=== PATIENT | female | born 1960 | race Caucasian/White ===

== ENCOUNTER 2023-03-29 13:08 | Day surgery (SDC) | payer BC ==
[~2023-03-29] VITALS: Ht 170.2 cm; Wt 113.0 kg
[~2023-03-29 13:08] MED LIST: Bisoprolol Fumar5 MG PO; DULO60 PO; HYDCHL25 PO; LOSARTAN POTAS100 M1 PO; Oxybutynin Chlo10 MG PO; POTCHL20ER PO
[2023-03-29] MEDS ORDERED: CENTRUM SILVER1 EAC2 PO (13:27)
[2023-03-29 15:13] VITALS: BP 136/87
--- NOTE | 2023-03-29 15:13 | NUR ---
03/29/23 1513 [place] REM[place]. SITE WNL
== END 2023-03-29 15:18 | disposition home or self-care (01) ==
LOC: ORSCSDS 13:08
PROVIDERS: Internal Medicine Gastroenterology
PROC: 0DJD8ZZ Inspection of Lower Intestinal Tract, Via Natural or Artificial Opening Endoscopic (ICD-10-PCS; principal; 2023-03-29 14:00)
DX: Z12.11 Encounter for screening for malignant neoplasm of colon (principal); Z86.010 Personal history of colon polyps; K64.8 Other hemorrhoids; I10 Essential (primary) hypertension; G47.33 Obstructive sleep apnea (adult) (pediatric); E11.9 Type 2 diabetes mellitus without complications; Z79.899 Other long term (current) drug therapy
CPT/HCPCS: 82947; J2704; J7120

== ENCOUNTER 2024-06-04 12:16 | Day surgery (SDC) | payer BC ==
[~2024-06-04] VITALS: Ht 170.2 cm; Wt 119.2 kg
[~2024-06-04 12:16] MED LIST changes: +Balanced Salt Epinephrine Irrigation Solution 500 mL IR SCH; +CENTRUM SILVER1 EAC2 PO; +Lidocaine HCl/Pf 1% 5 ML VIAL XX SCH; +Moxifloxacin HCL 0.5 MG/0.1 ML 0.4MLSYR LEFTEYE SCH; +NS 500 ML IV ONE; +PHENYLEPHRINE\\TROPICAMIDE\\TETRACAINE OPHTHALMIC DILATING SOLN LEFTEYE PRN; +Povidone-Iodine 450 DROP/30 ML Solution LEFTEYE SCH; +Povidone-Iodine 450 DROP/30 ML Solution ONE; +Tetracaine HCl/Pf 0.5% Opth Soln 4 ml ONE
[2024-06-04] MEDS ORDERED: NS 500 ML IV ONE (13:03)
--- NOTE | 2024-06-04 13:05 | NUR ---
06/04/24 1305 Dasha Valiente CALL LIGHT WITHIN REACH. TETRACAINE IN LEFT EYE AT 1259 AND PLEDGETT IN AT 1300
[2024-06-04 14:15] VITALS: BP 152/79
== END 2024-06-04 14:25 | disposition home or self-care (01) ==
LOC: ORSCSDS 12:16
PROVIDERS: Student in an Organized Health Care Education/Training Program
PROC: 08RK3JZ Replacement of Left Lens with Synthetic Substitute, Percutaneous Approach (ICD-10-PCS; principal; 2024-06-04 13:45)
DX: E11.36 Type 2 diabetes mellitus with diabetic cataract (principal); H25.813 Combined forms of age-related cataract, bilateral; I10 Essential (primary) hypertension; Z79.899 Other long term (current) drug therapy
CPT/HCPCS: 82947; J7040; V2632

== ENCOUNTER 2024-06-11 12:28 | Day surgery (SDC) | payer BC ==
[~2024-06-11] VITALS: Ht 170.2 cm; Wt 120.8 kg
[~2024-06-11 12:28] MED LIST changes: +FentaNYL Citrate 50 MCG/ML 2 ML Injection ONE; +Midazolam HCl 1MG / ML 2ML Vial ONE; -Moxifloxacin HCL 0.5 MG/0.1 ML 0.4MLSYR LEFTEYE SCH; +Moxifloxacin HCL 0.5 MG/0.1 ML 0.4MLSYR RIGHTEYE SCH; -PHENYLEPHRINE\\TROPICAMIDE\\TETRACAINE OPHTHALMIC DILATING SOLN LEFTEYE PRN; +PHENYLEPHRINE\\TROPICAMIDE\\TETRACAINE OPHTHALMIC DILATING SOLN RIGHTEYE PRN; -Povidone-Iodine 450 DROP/30 ML Solution LEFTEYE SCH; +Povidone-Iodine 450 DROP/30 ML Solution RIGHTEYE SCH
--- NOTE | 2024-06-11 12:46 | NUR ---
06/11/24 1246 Dasha Valiente CALL LIGHT WITHIN REACH. TETRACAINE IN RIGHT EYE AT 1241 AND PLEDGETT IN AT 1242
[2024-06-11] MEDS ORDERED: NS 500 ML IV ONE ×2 (12:47→13:20)
[2024-06-11 13:56] VITALS: BP 146/81
== END 2024-06-11 13:39 | disposition home or self-care (01) ==
LOC: ORSCSDS 12:28
PROVIDERS: Student in an Organized Health Care Education/Training Program
PROC: 08RJ3JZ Replacement of Right Lens with Synthetic Substitute, Percutaneous Approach (ICD-10-PCS; principal; 2024-06-11 13:45)
DX: E11.36 Type 2 diabetes mellitus with diabetic cataract (principal); H25.811 Combined forms of age-related cataract, right eye; Z96.1 Presence of intraocular lens; I10 Essential (primary) hypertension; E66.9 Obesity, unspecified; Z68.41 Body mass index [BMI] 40.0-44.9, adult; Z79.899 Other long term (current) drug therapy
CPT/HCPCS: 82947; J2250; J3010; J7040; V2632

== ENCOUNTER → 2024-12-16 | Outpatient (CLI) | payer MEDICARE ==
[~2024-12-16] MED LIST changes: -Balanced Salt Epinephrine Irrigation Solution 500 mL IR SCH; -FentaNYL Citrate 50 MCG/ML 2 ML Injection ONE; -Lidocaine HCl/Pf 1% 5 ML VIAL XX SCH; -Midazolam HCl 1MG / ML 2ML Vial ONE; -Moxifloxacin HCL 0.5 MG/0.1 ML 0.4MLSYR RIGHTEYE SCH; -NS 500 ML IV ONE; -PHENYLEPHRINE\\TROPICAMIDE\\TETRACAINE OPHTHALMIC DILATING SOLN RIGHTEYE PRN; -Povidone-Iodine 450 DROP/30 ML Solution ONE; -Povidone-Iodine 450 DROP/30 ML Solution RIGHTEYE SCH; -Tetracaine HCl/Pf 0.5% Opth Soln 4 ml ONE
== END ==
LOC: LAB SHORT 10:10 → LAB 10:10
DX: N39.0 Urinary tract infection, site not specified (principal)
CPT/HCPCS: 87077; 87086; 87186

== ENCOUNTER 2024-12-30 12:15 | Emergency (ER) | payer MEDICARE ==
[~2024-12-30] VITALS: Ht 180.3 cm; Wt 90.7 kg
[2024-12-30 13:34] LABS: BASOPHILS ABSOLUTE AUTO 0.06 K/mm3 (0.00-0.23); BASOPHILS PERCENT AUTO 1 % (0-2); EOSINOPHILS ABSOLUTE AUTO 0.26 K/mm3 (0.00-0.68); EOSINOPHILS PERCENT AUTO 3 % (0-6); Hemoglobin 9.2 g/dL (11.5-16.0); IMMATURE GRAN ABSOLUTE AUTO 0.03 K/mm3 (0.00-0.10); IMMATURE GRAN PERCENT AUTO 0 % (0-1); LYMPHOCYTES ABSOLUTE AUTO 1.77 K/mm3 (0.84-5.20); LYMPHOCYTES PERCENT AUTO 19 % (21-46); MONOCYTES ABSOLUTE AUTO 0.75 K/mm3 (0.16-1.47); MONOCYTES PERCENT AUTO 8 % (4-13); Mean Corpuscular HGB 22.9 pg (26.0-34.0); Mean Corpuscular HGB Conc 30.7 g/dL (31.5-36.5); Mean Corpuscular Volume 75 fL (80-100); Mean Platelet Volume 9.3 fL (9.1-12.4); NEUTROPHILS ABSOLUTE AUTO 6.49 K/mm3 (1.96-9.15); NEUTROPHILS PERCENT AUTO 69 % (41-73); Platelet Count 406 K/mm3 (150-400); RDW Coefficient Variation 17.6 % (11.7-14.2); RDW Standard Deviation 47.2 fL (35.1-46.3); Red Blood Cell Count 4.02 M/mm3 (3.80-5.20); White Blood Cell Count 9.36 K/mm3 (4.00-11.30)
[2024-12-30 13:51] LABS: Albumin, Blood 3.4 g/dL (3.4-5.0); Bilirubin, Total 0.6 mg/dL (0.1-1.0); Bun/Creatinine Ratio 20.2 (12.0-20.0); Calcium, Blood 8.7 mg/dL (8.5-10.1); Creatinine, Blood 0.74 mg/dL (0.40-1.00); Globulin, Blood 3.4 g/dL (2.2-4.0); Potassium, Blood 3.4 mmol/L (3.5-5.5); Total Protein, Blood 6.8 g/dL (6.4-8.2)
[2024-12-30] MEDS ORDERED: METFORMIN HCL500 M2 PO (15:37)
[2024-12-30] MEDS ORDERED: SULTRIDS PO (17:19)
[2024-12-30 17:53] VITALS: BP 163/101
== END 2024-12-30 17:52 | disposition home or self-care (01) ==
LOC: ER 12:15
PROVIDERS: Student in an Organized Health Care Education/Training Program
DX: L03.116 Cellulitis of left lower limb (principal); I87.2 Venous insufficiency (chronic) (peripheral); E87.6 Hypokalemia; D64.9 Anemia, unspecified; E11.9 Type 2 diabetes mellitus without complications; Q60.0 Renal agenesis, unilateral; Z88.8 Allergy status to other drugs, medicaments and biological substances; Z79.84 Long term (current) use of oral hypoglycemic drugs; Z79.899 Other long term (current) drug therapy
CPT/HCPCS: 73590; 80053; 85025; 99283-25